=== PATIENT | female | born 1970 | race Caucasian/White ===

== ENCOUNTER → 2020-02-26 | Outpatient (CLI) | payer OTHER | LOC: M.RAD 13:20 | DX: Z12.31 Encounter for screening mammogram for malignant neoplasm of breast (principal) ==

== ENCOUNTER → 2020-03-13 | Outpatient (CLI) | payer BC ==
--- NOTE | 2020-03-16 21:54 | SLEEP ---
[address] [address] SLEEP STUDY REPORT Name: DAMIR WALDRON Room: [facility]#: [id number] Admission: 03/13/20 Attend Phys: Tino Panchal DO Discharge: Date of : 72 Report #: [id number] THIS REPORT FOR: //name// CC: Tino Panchal This study has been reviewed in its entirety by a board certified sleep specialist DATE OF SERVICE: 03/13/2020 REFERRING PHYSICIAN: Tino Panchal DO The patient is 49 years old, who weighs 170 pounds with a BMI of 32.1. The patient's [place] score was 11. The patient underwent diagnostic sleep study performed at [facility]. During the night study, the patient spent 430 minutes in bed and slept for 359 minutes with a sleep efficiency of 83%. Sleep latency was 30 minutes with a REM latency of 244 minutes. Sleep architecture showed normal stage 1 and stage 2 sleep, increased slow wave and normal REM sleep. During the night study, the patient had 3 obstructive apneas, no mixed apneas, 1 central apnea, and 17 hypopneas. The patient's AHI was 3.5 per hour with a REM AHI of 3.8 per hour and a supine AHI of 5.6 per hour. EKG monitoring revealed an average heart rate of 90 beats per minute. No sustained arrhythmias observed. PLMs were seen at an index of 53 per hour and 19 per hour caused EEG arousals. Nocturnal oximetry study revealed an average oxygen saturation of 92% with the lowest of 85%. Only 1.3 minutes were spent in oxygen saturation of between 80-89%. Due to low AHI, the patient did not meet the split night criteria for CPAP initiation. IMPRESSION: 1. No clinically significant sleep disordered breathing. The patient's AHI for the entire night was 3.5 per hour. 2. No clinically significant nocturnal hypoxia. 3. Severe periodic limb movements. RECOMMENDATIONS: 1. The patient did not meet the split night criteria for CPAP [place] [address] SLEEP STUDY REPORT Name: DAMIR WALDRON Room: [facility]#: [id number] Admission: 03/13/20 Attend Phys: Tino Panchal DO Discharge: Date of : 72 Report #: [id number] 2. Weight loss to the ideal body weight is recommended. 3. Avoid [employer] depressants. 4. The patient should also be further evaluated for symptoms of restless legs during the day and if present, then it can be treated with dopaminergic agonist agents. 5. Cautioned regarding driving until the patient's subjective hypersomnia is resolved. <ELECTRONICALLY SIGNED> By: Case Baeza MD 03/16/20 2154 1822 [id number] Roseann Baeza MD /nt
== END ==
LOC: EDUNIT# 02-13 09:29 → M.SLEEPLAB 20:50
PROVIDERS: ATTEND Family Medicine
DX: I10 Essential (primary) hypertension (principal); R53.82 Chronic fatigue, unspecified

== ENCOUNTER 2020-06-09 15:09 | Emergency (ER) | payer BC ==
[~2020-06-09] VITALS: Ht 154.9 cm; Wt 72.6 kg
[2020-06-09] MEDS ORDERED: APAP W/CODEINE1 TA2 PO (16:31)
[2020-06-09] MEDS ORDERED: MEDROLDOSEPACK PO (16:31)
[2020-06-09] MEDS ORDERED: ZPAK PO (16:31)
[2020-06-09] MEDS ORDERED: TESSALON PERLE100 MG PO (16:31)
[2020-06-09] MEDS ORDERED: PROAIR HFA8.5 GM INH (16:31)
[2020-06-09 16:47] VITALS: BP 125/81
== END 2020-06-09 16:48 | disposition home or self-care (01) ==
LOC: M.ERS 15:09
DX: J20.9 Acute bronchitis, unspecified (principal); Z20.828 Contact with and (suspected) exposure to other viral communicable diseases

== ENCOUNTER 2021-07-12 09:41 | Emergency (ER) | payer OTHER ==
[~2021-07-12] VITALS: Ht 154.9 cm; Wt 72.6 kg
[~2021-07-12 09:41] MED LIST: APAP W/CODEINE1 TA2 PO; MEDROLDOSEPACK PO; PROAIR HFA8.5 GM INH; TESSALON PERLE100 MG PO; ZPAK PO
[2021-07-12] MEDS ORDERED: HYDROXYZINE HCL25 M2 PO (09:55)
[2021-07-12] MEDS ORDERED: LOPERAMIDE2 MG PO (09:56)
[2021-07-12] MEDS ORDERED: MINIPRESS5 MG PO (09:56)
[2021-07-12] MEDS ORDERED: LITHATE5 MG PO (09:57)
[2021-07-12] MEDS ORDERED: DIAZEPAM 5 MG5 M1 PO (09:58)
[2021-07-12] MEDS ORDERED: DESYREL150 MG PO (09:58)
[2021-07-12] MEDS ORDERED: PROPRANOLOL 1010 MG PO (09:58)
[2021-07-12] MEDS ORDERED: VENLAFAXINE HCL75 M1 PO (09:59)
[2021-07-12] MEDS ORDERED: BENTYL 10 MG CA10 MG PO (09:59)
[2021-07-12] MEDS ORDERED: VITAMIN D3125 MC2 PO (10:00)
[2021-07-12] MEDS ORDERED: VENLAFAXINE HC150 M1 PO (10:00)
[2021-07-12] MEDS ORDERED: LITHIUM CARBON300 M3 PO (10:01)
[2021-07-12] MEDS ORDERED: LAMOTRIGINE250 MG PO (10:01)
[2021-07-12] MEDS ORDERED: LAMICTAL XR200 MG PO (10:02)
[2021-07-12] MEDS ORDERED: GLIPIZIDE 10 MG10 MG PO (10:02)
[2021-07-12] MEDS ORDERED: FARXIGA10 MG PO (10:03)
[2021-07-12] MEDS ORDERED: RISPERDAL0.5 MG PO (10:03)
[2021-07-12 10:09] LABS: ABSOLUTE BASOPHILS 0.1 thou/uL (0.0-0.2); ABSOLUTE LYMPHOCYTES 1.1 thou/uL (0.8-5.3); ABSOLUTE MONOCYTES 0.2 thou/uL (0.0-1.2); ABSOLUTE NEUTROPHILS 8.7 thou/uL (1.6-8.1); BASOPHILS 1.1 %; EOSINOPHILS 0.1 %; HEMOGLOBIN 14.7 gm/dL (12.0-15.0); LYMPHOCYTES 10.9 %; MCH 29.3 pg (26.0-34.0); MCHC 34.1 g/dL (28.0-37.0); MCV 85.9 fL (80.0-100.0); MONOCYTES 2.4 %; MPV 6.7 fl. (7.2-11.1); NUCLEATED RBCS 0 /100WBC; PLATELET COUNT* 226 thou/uL (150-400); POLYS 85.5 %; RBC 5.01 mil/uL (4.20-5.00); RDW-CV 13.4 % (10.5-14.5); WBC 10.2 thou/uL (4.0-11.0)
[2021-07-12 10:12] LABS: URINE BLOOD TRACE (Negative); URINE CLARITY CLEAR; URINE COLOR YELLOW; URINE GLUCOSE-RANDOM 2+ (Negative); URINE LEUKOCYTES-REFLEX NEGATIVE (Negative); URINE NITRITE-REFLEX NEGATIVE (Negative); URINE PROTEIN 1+ (Negative); URINE UROBILINOGEN 0.2 E.U./dl (0.2-1.0)
[2021-07-12 10:13] LABS: URINE KETONES 3+ (Negative)
[2021-07-12 10:14] LABS: ICTOTEST (BILI CONFIRMATORY) Negative (Negative); URINE BILIRUBIN 1+ (Negative)
[2021-07-12 10:21] LABS: CALCIUM 8.8 mg/dL (8.5-10.1); CREATININE 0.8 mg/dL (0.6-1.3); POTASSIUM 3.8 mmol/L (3.5-5.1)
[2021-07-12 10:25] LABS: ALBUMIN 4.2 g/dL (3.4-5.0); TOTAL BILIRUBIN 0.8 mg/dL (<0.1-1.0); TOTAL PROTEIN 8.6 g/dL (6.4-8.2)
[2021-07-12] MEDS ORDERED: HYDROCODON-ACE1 EAC7 PO (11:44)
[2021-07-12] MEDS ORDERED: ZOFRAN ODT4 MG DISSOLVE (11:44)
[2021-07-12 12:17] VITALS: BP 144/68
--- NOTE | 2021-07-12 13:42 | EKG ---
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 : 1970 Requested By: Holger Weller Order Number: [id number] MD: Luis Moeller Measurements Intervals [place] Rate: 111 P: 66 MN: 169 QRS: -1 QRSD: 83 T: QT: 330 QTc: 449 Interpretive Statements Sinus tachycardia Abnormal R-wave progression, late transition Nonspecific T abnormalities, lateral leads No previous ECG available for comparison Electronically Signed On 07-12-2021 13:42:41 CDT by Luis Moeller [email or web address] <ELECTRONICALLY SIGNED> By: Luis Moeller MD, [facility] 07/12/21 1342 1024 1024 Luis Moeller MD, FAC /EPI
== END 2021-07-12 12:18 | disposition home or self-care (01) ==
LOC: M.ERS 09:41
PROVIDERS: Family Medicine
DX: R10.13 Epigastric pain (principal); I10 Essential (primary) hypertension; F41.9 Anxiety disorder, unspecified; E11.9 Type 2 diabetes mellitus without complications; F32.9 Major depressive disorder, single episode, unspecified; Z90.710 Acquired absence of both cervix and uterus; Z90.89 Acquired absence of other organs; Z79.899 Other long term (current) drug therapy

== ENCOUNTER 2021-11-23 18:49 | Emergency (ER) | payer OTHER ==
[~2021-11-23] VITALS: Ht 154.9 cm; Wt 72.6 kg
[~2021-11-23 18:49] MED LIST changes: +BENTYL 10 MG CA10 MG PO; +DESYREL150 MG PO; +DIAZEPAM 5 MG5 M1 PO; +FARXIGA10 MG PO; +GLIPIZIDE 10 MG10 MG PO; +HYDROCODON-ACE1 EAC7 PO; +HYDROXYZINE HCL25 M2 PO; +LAMICTAL XR200 MG PO; +LAMOTRIGINE250 MG PO; +LITHATE5 MG PO; +LITHIUM CARBON300 M3 PO; +LOPERAMIDE2 MG PO; +MINIPRESS5 MG PO; +PROPRANOLOL 1010 MG PO; +RISPERDAL0.5 MG PO; +VENLAFAXINE HC150 M1 PO; +VENLAFAXINE HCL75 M1 PO; +VITAMIN D3125 MC2 PO; +ZOFRAN ODT4 MG DISSOLVE
[2021-11-23] MEDS ORDERED: TRIGLIDE160 MG PO (19:02)
[2021-11-23] MEDS ORDERED: VASCEPA1 GM PO (19:03)
[2021-11-23] MEDS ORDERED: LIPITOR40 MG PO (19:03)
[2021-11-23 22:57] LABS: ABSOLUTE BASOPHILS 0.1 thou/uL (0.0-0.2); ABSOLUTE EOSINOPHILS 0.1 thou/uL (0.0-0.7); ABSOLUTE LYMPHOCYTES 3.5 thou/uL (0.8-5.3); ABSOLUTE MONOCYTES 0.5 thou/uL (0.0-1.2); ABSOLUTE NEUTROPHILS 3.6 thou/uL (1.6-8.1); BASOPHILS 1.4 %; EOSINOPHILS 1.9 %; HEMATOCRIT 34.9 % (37.0-47.0); HEMOGLOBIN 11.6 gm/dL (12.0-15.0); LYMPHOCYTES 44.6 %; MCH 29.1 pg (26.0-34.0); MCHC 33.3 g/dL (28.0-37.0); MCV 87.4 fL (80.0-100.0); MONOCYTES 5.8 %; MPV 6.4 fl. (7.2-11.1); NUCLEATED RBCS 0 /100WBC; PLATELET COUNT* 229 thou/uL (150-400); POLYS 46.3 %; RDW-CV 14.3 % (10.5-14.5); WBC 7.8 thou/uL (4.0-11.0)
[2021-11-23 23:06] LABS: CREATININE 0.9 mg/dL (0.6-1.3); POTASSIUM 3.7 mmol/L (3.5-5.1)
[2021-11-23 23:10] LABS: ALBUMIN 3.4 g/dL (3.4-5.0); TOTAL BILIRUBIN 0.3 mg/dL (<0.1-1.0); TOTAL PROTEIN 6.3 g/dL (6.4-8.2)
[2021-11-24] MEDS ORDERED: TORADOL 10 MG T10 MG PO (02:32)
[2021-11-24 02:34] LABS: URINE BILIRUBIN NEGATIVE (Negative); URINE BLOOD NEGATIVE (Negative); URINE CLARITY CLEAR; URINE COLOR YELLOW; URINE GLUCOSE-RANDOM NEGATIVE (Negative); URINE KETONES NEGATIVE (Negative); URINE LEUKOCYTES-REFLEX TRACE (Negative); URINE NITRITE-REFLEX NEGATIVE (Negative); URINE PROTEIN NEGATIVE (Negative); URINE UROBILINOGEN 0.2 E.U./dl (0.2-1.0)
[2021-11-24 02:54] VITALS: BP 126/88
[2021-11-24 04:05] LABS: CASTS None Seen /LPF (None Seen); SQUAMOUS >10 Many /LPF (0-3)
[2021-11-24 04:06] LABS: URINE WBC-REFLEX 6-15 Few /HPF (0-5)
[2021-11-24 04:07] LABS: BACTERIA-REFLEX >30 Many /HPF (None Seen); CRYSTALS None Seen /LPF (None Seen); URINE RBC 3-10 Few /HPF (0-2)
--- NOTE | 2021-11-24 09:15 | EKG ---
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: : 1970 Requested By: Diana Rinaldi Order Number: [id number] MD: Luis Moeller Measurements Intervals [place] Rate: 73 P: 71 FL: 170 QRS: 29 QRSD: 93 T: 39 QT: 461 QTc: 508 Interpretive Statements Sinus rhythm Borderline T abnormalities, anterior leads Borderline prolonged QT interval Compared to ECG 07/12/2021 10:24:32 Sinus tachycardia no longer present T-wave abnormality still present Electronically Signed On 11-24-2021 9:01:42 [employer] PROGRAM TECHNICIAN by Luis Moeller [email or web address] <ELECTRONICALLY SIGNED> By: Luis Moeller MD, [facility] 11/24/21 0901 47 Luis Moeller MD, [facility] /EPI
== END 2021-11-24 02:55 | disposition home or self-care (01) ==
LOC: M.ERS 18:49
PROVIDERS: Personal Emergency Response Attendant
DX: R07.89 Other chest pain (principal); R10.11 Right upper quadrant pain; I10 Essential (primary) hypertension; F41.9 Anxiety disorder, unspecified; F31.9 Bipolar disorder, unspecified; E11.9 Type 2 diabetes mellitus without complications; F17.200 Nicotine dependence, unspecified, uncomplicated; Z90.89 Acquired absence of other organs; Z90.49 Acquired absence of other specified parts of digestive tract; Z90.710 Acquired absence of both cervix and uterus; Z79.891 Long term (current) use of opiate analgesic; Z79.899 Other long term (current) drug therapy; Z79.1 Long term (current) use of non-steroidal anti-inflammatories (NSAID)